=== PATIENT | female | born 1965 | race African-American/Black ===

== ENCOUNTER 2018-07-25 13:14 | Emergency (ER) | payer MEDICAID ==
[~2018-07-25] VITALS: Ht 162.6 cm; Wt 83.9 kg
--- NOTE | 2018-07-25 13:31 | Emergency Room Report ---
History of Present Illness General Chief Complaint: Lower Extremity Injury Source: Patient Present Illness HPI Patient present with complaints of right ankle pain Reports that yesterday while she was walking down the stairs she missed a step twisting her right ankle There was increased swelling and pain to the lateral aspect And presents for further evaluation denies any fevers denies any chills Denies any knee pain denies any back pain Pain is fairly well localized to the lateral ankle 5 out of 10 worse with touch or bearing weight Allergies: Coded Allergies: No Known Allergies (Unverified , 07/25/18) Patient History Past Medical History: see triage record Pertinent Family History: none Now: No Reviewed Nursing Documentation: PMH: Agreed; PSxH: Agreed Nursing Documentation-PMH Past Medical History: No Stated History Review of Systems All Other Systems: negative except mentioned in HPI Physical Exam Vital Signs Date Time Temp Pulse Resp B/P (MAP) Pulse Ox O2 Delivery O2 Flow Rate FiO2 07/25/18 13:22 98.2 80 20 114/83 98 Room Air Sp02 EP Interpretation: reviewed, normal General Appearance: well appearing, no apparent distress Head: normocephalic, atraumatic Eyes: bilateral eye PERRL, bilateral eye EOMI ENT: normal pharynx, no angioedema Neck: full range of motion, supple Musculoskeletal: swelling - And discomfort palpated to the lateral malleolus region, no obvious open wounds, neurovascularly intact Neurologic: alert, oriented x3, responsive Skin: other - As above Lymphatic: no adenopathy Procedures Splinting Splinting : Consent: Verbal Location: Right ankle Pre-Made Type: aircast Splint: sugar-tong Pre-Proc Neuro Vasc Exam: normal Post-Proc Neuro Vasc Exam: normal Patient Tolerated: Well Complications: None Medical Decision Making Diagnostic Impression: Primary Impression: Ankle sprain ER Course X-ray imaging reveals soft tissue swelling no obvious fracture Given the discomfort and edema however patient has a splint applied Requires to be nonweightbearing for the next 3-4 days And requires close follow-up by primary physician Other X-Ray Diagnostic Results Other X-Ray Diagnostic Results : X-Ray ordered: Right ankle # of Views/Limited Vs Complete: 4 View Indication: Pain EP Interpretation: Yes Interpretation: no dislocation, no fractures, other - Soft tissue swelling Impression: Other - Soft tissue swelling Electronically Signed by: Ali Jamehdor, DO Last Vital Signs Date Time Temp Pulse Resp B/P (MAP) Pulse Ox O2 Delivery O2 Flow Rate FiO2 07/25/18 13:22 98.2 80 20 114/83 98 Room Air Status: improved Disposition: HOME, SELF-CARE Condition: Improved Scripts Ibuprofen* (MOTRIN*) 600 Mg Tablet 600 MG ORAL Q8H PRN for For Pain, #20 TAB 0 Refills Prov: Esteban Whitmore DO 07/25/18 Additional Instructions: Patient is provided with the discharge instructions notified to follow up with primary doctor in the next 2-3 days otherwise return to the er with any worsening symptoms. Please note that this report is being documented using [employer] technology. This can lead to erroneous entry secondary to incorrect interpretation by the dictating instrument. Esteban Whitmore DO Jul 25, 2018 13:30
[2018-07-25] MEDS ORDERED: IBUPROFEN600 MG ORAL (14:54)
[2018-07-25 15:09] VITALS: BP 121/80
--- NOTE | 2018-07-25 15:12 | Diagnostic Imaging Report ---
Indication: ankle pain/trauma Comparison: None Findings: 3 views of the right ankle obtained. No acute fracture, malalignment, periostitis, or osteochondral defects are identified. Soft tissues are unremarkable. Plantar calcaneal spur noted. Impression: Negative examination
== END 2018-07-25 15:09 | disposition home or self-care (01) ==
LOC: EMR 13:42
DX: S93.401A Sprain of unspecified ligament of right ankle, initial encounter (principal); X50.1XXA Overexertion from prolonged static or awkward postures, initial encounter; Y92.89 Other specified places as the place of occurrence of the external cause
CPT/HCPCS: 29515; 99283